=== PATIENT | female | born 1980 | race Caucasian/White ===

== ENCOUNTER 2017-04-26 14:05 | Emergency (ER) | payer OTHER ==
[~2017-04-26] VITALS: Ht 165.1 cm; Wt 60.0 kg
[~2017-04-26 14:05] MED LIST: CYCL-36 PO
[2017-04-26 14:06] VITALS: BP 132/83; PULSE 90; RESP 20; TEMP 97.8; O2SAT 98
[2017-04-26] MEDS ORDERED: TETANUS/DIPHTHERIA TOXOID ADULT 0.5 ML VIAL IM ONE (14:30)
--- NOTE | 2017-04-26 14:46 | PD ---
HPI Chief Complaint: Laceration/Skin Injury Time Seen by Provider: 14:20 Travel History International Travel<30 days: No Contact w/Intl Traveler<30days: No Traveled to known affect area: No History of Present Illness HPI 36-year-old female with injury to the left fifth finger. 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 She now has pain, some bleeding, to the nail bed of the left fifth finger. Last tetanus vaccination unknown. No other complaints. PFSH Past Medical History Blood Disorders: No Cancer: No Cardiovascular Problems: No Diabetes: No Endocrine: No Genitourinary: Yes (OCC UTI) Hepatitis: No Hiatal Hernia: No Immune Disorder: No Musculoskeletal: No Neurologic: No Psychiatric: No Reproductive: Yes Respiratory: No Thyroid Disease: No ?: Not : 2 Para: 2 Past Surgical History Section: Yes (X 2) Gynecologic Surgery: Yes (C SECTION X 2) Hysterectomy: Yes Oral Surgery: Yes (TONSILLECTOMY) Social History Alcohol Use: Yes (OCCASION) Tobacco Use: No Substance Use: No Allergies-Medications (Allergen,Severity, Reaction): Coded Allergies: No Known Allergies (Unverified , 04/26/17) Reported Meds & Prescriptions Reported Meds & Active Scripts Active Reported Flexeril (Cyclobenzaprine HCl) 10 Mg Tab 10 Mg PO TID PRN Review of Systems Musculoskeletal: Positive: Pain Skin: Positive Other (fingernail avulsion, bleeding) Physical Exam Narrative GENERAL: Well-developed well-nourished female in no acute distress SKIN: Warm and dry. The distal 75% of the left fifth fingernail has been avulsed. The nail bed is intact. The root of the nail was intact. Extremities: Skin as noted above. Some tenderness to palpation of the distal left fifth finger. Data Data Last Documented VS Vital Signs Date Time Temp Pulse Resp B/P Pulse Ox O2 Delivery O2 Flow Rate FiO2 04/26/17 14:06 97.8 90 20 132/83 98 Room Air Orders Tetanus/Diphtheria Tox Adult (Tetanus/Di (04/26/17 14:30) Finger ([id number]) (04/26/17 ) MDM Medical Decision Making Medical Screen Exam Complete: Yes Emergency Medical Condition: Yes Medical Record Reviewed: Yes Differential Diagnosis Fingernail avulsion, tuft fracture, nail bed laceration Narrative Course X-ray imaging is unremarkable. Examination reveals a fingernail avulsion. Local wound care provided. Tetanus status updated. Stable for discharge. Diagnosis Primary Impression: Fingernail avulsion, partial Qualified Code: S61.309A - Fingernail avulsion, partial, initial encounter Additional Instructions: Tylenol or Motrin for pain. Keep the area clean. The nail will grow back in the next 3-6 months. Med/Other Pt SpecificInfo: Wound Care Disposition: 01 DISCHARGE HOME Condition: Stable Tyree Reynoso Apr 26, 2017 14:46
--- NOTE | 2017-04-26 15:11 | RADRPT ---
EXAM DATE/TIME: 04/26/2017 14:53 [facility] COMPARISON: No previous studies available for comparison. INDICATIONS : Left 5th digit injury; finger nail removed by accident at work. MEDICAL HISTORY : None. SURGICAL HISTORY : None. ENCOUNTER: Initial ACUITY: 1 day PAIN SCORE: 10/10 LOCATION: Left 5th digit; hand FINDINGS: Examination of the fifth digit of the left hand demonstrates no evidence of fracture or dislocation. No radiopaque foreign bodies are seen. The soft tissues are intact. CONCLUSION: Unremarkable examination of the left fifth finger. Jorge Bush Jr., MD on April 26, 2017 at 15:09 Board Certified Radiologist. This report was verified electronically.
== END 2017-04-26 16:06 | disposition home or self-care (01) ==
LOC: NEPK 14:05
DX: S61.307A Unspecified open wound of left little finger with damage to nail, initial encounter (principal); W31.82XA Contact with other commercial machinery, initial encounter; Y92.63 Factory as the place of occurrence of the external cause; Y99.0 Civilian activity done for income or pay; Z23 Encounter for immunization
CPT/HCPCS: 73140; 90471; 90714